=== PATIENT | female | born 1950 | race Caucasian/White ===

== ENCOUNTER 2018-01-26 01:58 | Inpatient (IN) | payer OTHER ==
[~2018-01-26] VITALS: Ht 160 cm; Wt 101.4 kg
[~2018-01-26 01:58] MED LIST: GLU10 PO; GLU500; SYN2 PO; ZES20 PO
[2018-01-26 02:03] VITALS: Ht 160 cm; Wt 101.4 kg
[2018-01-26 02:21] LABS: BASOPHIL % 0.4 % (0-2); PLATELET COUNT 243 x10^3mcL (130-400); RED CELL DISTRIBUTION WIDTH 14.3 % (11.5-14.5)
[2018-01-26 02:31] LABS: CALCIUM 9.3 mg/dL (8.5-10.1); CARBON DIOXIDE 20.5 mmol/L (21-32); POTASSIUM SERUM 3.9 mmol/L (3.5-5.1)
[2018-01-26 02:35] LABS: BILIRUBIN TOTAL 0.31 mg/dL (0.20-1.00); CHOLESTEROL/HDL RATIO 2.9; TOTAL PROTEIN, SERUM 7.2 g/dL (6.4-8.2)
[2018-01-26 02:39] LABS: ALBUMIN 3.2 g/dL (3.4-5.0)
[2018-01-26 02:46] LABS: T3 TOTAL 0.77 ng/mL
[2018-01-26 02:51] LABS: FREE T4 1.24 ng/dL (0.76-1.46); FREE THYROXINE INDEX 3.8 ug/dL (1.4-4.5); T4(THYROXINE) 10.2 ug/dL (4.7-13.3)
[2018-01-26] MEDS ORDERED: GOOD SENSE ASPI81 M3 PO (04:39)
[2018-01-26] MEDS ORDERED: ALLOPURINOL100 MG PO (04:39)
[2018-01-26] MEDS ORDERED: CARVEDILOL12.5 M1 PO (04:39)
[2018-01-26] MEDS ORDERED: DILTIAZEM HCL180 MG PO (04:39)
[2018-01-26] MEDS ORDERED: METFORMIN HCL1000 MG PO (04:39)
[2018-01-26] MEDS ORDERED: ATORVASTATIN CA10 M1 PO (04:39)
[2018-01-26] MEDS ORDERED: HYDROCHLOROTHIA25 MG PO (04:40)
[2018-01-26] MEDS ORDERED: VICTOZA6 MG/M1 SC (04:40)
[2018-01-26] MEDS ORDERED: LEVOTHYROXIN0.175 MG PO (04:40)
[2018-01-26 04:44] LABS: MAGNESIUM 1.5 mg/dL (1.8-2.4); PHOSPHOROUS 3.3 mg/dL (2.5-4.9)
[2018-01-26 06:07] VITALS: BP 163/89
[2018-01-26 10:24] VITALS: BP 179/92
[2018-01-26 12:24] LABS: UA SPECIFIC GRAVITY >=1.030 (1.005-1.035); microscopic required? YES; urine erythrocyte 1+ (NEGATIVE)
[2018-01-26 12:50] VITALS: BP 143/66
[2018-01-26 13:20] LABS: AMPHETAMINE QUAL UR NONE DETECTED (NEG <=1000)
[2018-01-26 16:38] VITALS: BP 117/41
[2018-01-26] MEDS ORDERED: FLO4 PO (17:06)
[2018-01-26] MEDS ORDERED: LEVOFLOXACIN500 M1 PO (17:06)
[2018-01-26 20:01] VITALS: BP 117/41
== END 2018-01-26 21:39 | disposition short-term general hospital (02) | DRG 205 ==
LOC: ED 01:58 → DU 04:00
PROVIDERS: Family Medicine; Specialist
DX: M94.0 Chondrocostal junction syndrome [Tietze] (principal); N17.0 Acute kidney failure with tubular necrosis; C85.92 Non-Hodgkin lymphoma, unspecified, intrathoracic lymph nodes; E44.1 Mild protein-calorie malnutrition; N20.0 Calculus of kidney; E11.51 Type 2 diabetes mellitus with diabetic peripheral angiopathy without gangrene; E11.65 Type 2 diabetes mellitus with hyperglycemia; I10 Essential (primary) hypertension; E03.9 Hypothyroidism, unspecified; E83.42 Hypomagnesemia; E78.1 Pure hyperglyceridemia; R22.32 Localized swelling, mass and lump, left upper limb; M10.9 Gout, unspecified; Z86.12 Personal history of poliomyelitis; Z79.82 Long term (current) use of aspirin; Z68.39 Body mass index [BMI] 39.0-39.9, adult; Z79.84 Long term (current) use of oral hypoglycemic drugs
CPT/HCPCS: 82962; 83880; 84439; J1815; J1885; J1956; J2270; J2405; J3475; J7030; Q0092; Q9967

== ENCOUNTER 2018-12-12 13:15 | Emergency (ER) | payer OTHER ==
[~2018-12-12] VITALS: Ht 157.5 cm; Wt 113.4 kg
[~2018-12-12 13:15] MED LIST changes: +ALLOPURINOL100 MG PO; +ATORVASTATIN CA10 M1 PO; +CARVEDILOL12.5 M1 PO; +DILTIAZEM HCL180 MG PO; +FLO4 PO; +GOOD SENSE ASPI81 M3 PO; +HYDROCHLOROTHIA25 MG PO; +LEVOFLOXACIN500 M1 PO; +LEVOTHYROXIN0.175 MG PO; +METFORMIN HCL1000 MG PO; +VICTOZA6 MG/M1 SC
[2018-12-12 13:29] VITALS: Ht 157.5 cm; Wt 113.4 kg
[2018-12-12 15:11] LABS: PLATELET COUNT 35 x10^3mcL (130-400)
[2018-12-12 15:17] LABS: CALCIUM 7.9 mg/dL (8.5-10.1); CARBON DIOXIDE 25.2 mmol/L (21-32); CHLORIDE SERUM 105 mmol/L (98-107); CREATININE SERUM 1.3 mg/dL (0.6-1.0); GFR1 43 mL/min; GLUCOSE SERUM 146 mg/dL (74-106); POTASSIUM SERUM 3.2 mmol/L (3.5-5.1); SODIUM SERUM 139 mmol/L (136-145)
[2018-12-12 15:22] LABS: ALKALINE PHOSPHATASE 56 U/L (46-116); ALT/SGPT 21 U/L (14-59); AST/SGOT 14 U/L (15-37); BILIRUBIN TOTAL 0.4 mg/dL (0.20-1.00)
[2018-12-12 15:24] LABS: ALBUMIN 1.7 g/dL (3.4-5.0); TOTAL PROTEIN, SERUM 5.4 g/dL (6.4-8.2)
[2018-12-12 16:23] LABS: ATYPICAL LYMPH 3 %; MONOCYTE 1 % (0-7)
[2018-12-12 16:24] LABS: rbc morphology (normal/abnorm) ABNORMAL (NORMAL); tear drop cell (dacryocyte) 1+
[2018-12-12 20:10] VITALS: BP 163/61
== END 2018-12-12 20:10 | disposition short-term general hospital (02) ==
LOC: ED 13:15
PROVIDERS: Emergency Medicine
DX: R41.0 Disorientation, unspecified (principal); D61.818 Other pancytopenia; E87.2 Acidosis; E43 Unspecified severe protein-calorie malnutrition; I10 Essential (primary) hypertension; E11.9 Type 2 diabetes mellitus without complications; M10.9 Gout, unspecified; Z98.890 Other specified postprocedural states; Z88.0 Allergy status to penicillin; Z88.6 Allergy status to analgesic agent; Z88.8 Allergy status to other drugs, medicaments and biological substances
CPT/HCPCS: 82962; J1956; J2405; J3370; J7030; J7050; Q0092